=== PATIENT | female | born 1945 | race African-American/Black ===

== ENCOUNTER 2017-08-25 11:09 | Day surgery (SDC) | payer OTHER ==
[2017-08-23 16:07] VITALS: BMI 25.9
[2017-08-25] MEDS ORDERED: PROPOFOL 20 ML ONE (11:19)
[2017-08-25 11:42] VITALS: TEMP 98.1
[2017-08-25 13:22] VITALS: BP 160/73; PULSE 54
--- NOTE | 2017-08-26 17:16 | PATH ---
Surgical Pathology Report Patient Name: NATHANIEL LUNA [facility]. Rec. #: [id number] /Age/Gender: 1945 (Age: 71) / F Account: [id number] Location: [facility]-ENDOSCOPY Taken: 08/25/2017 Received: 08/25/2017 Reported: 08/26/2017 Physicians: Dena Ruiz M.D. Specimen(s) Received A: BX DUODENUM B: BX ANTRUM C: GE JUNCTION Clinical History Abdominal pain Postoperative diagnosis: Small hiatal hernia/gastritis Final Diagnosis A. DUODENUM, BIOPSY: DUODENAL MUCOSA WITH MILD CHRONIC DUODENITIS. B. ANTRUM, BIOPSY: GASTRIC MUCOSA WITH MILD CHRONIC GASTRITIS. IMMUNOSTAIN IS NEGATIVE FOR H. PYLORI ORGANISMS. C. GE JUNCTION, BIOPSY: SQUAMOUS AND COLUMNAR EPITHELIUM WITH CHRONIC INFLAMMATION. NEGATIVE FOR INTESTINAL METAPLASIA. Electronically Signed Carla Gilliland M.D. Gross Description A. Received in formalin, labeled "duodenum" are 2 maciel, irregular portions of soft tissue measuring 0.2-0.3 cm. in greatest dimension. The specimens are submitted in toto in one cassette. B. Received in formalin, labeled "antrum" is a maciel, irregular portion of soft tissue measuring 0.3 cm. in greatest dimension. The specimen is submitted in toto in one cassette. C. Received in formalin, labeled "GE junction" are 2 maciel, irregular portions of soft tissue measuring 0.1-0.2 cm. in greatest dimension. The specimens are submitted in toto in one cassette. BERTA/08/25/2017 kristine/08/25/2017
== END 2017-08-25 13:00 | disposition home or self-care (01) ==
LOC: FASU-ENDO 11:09
PROVIDERS: ATTEND Internal Medicine Gastroenterology
PROC: 0DB68ZX Excision of Stomach, Via Natural or Artificial Opening Endoscopic, Diagnostic (ICD-10-PCS; 2017-08-25)
PROC: 0DB58ZX Excision of Esophagus, Via Natural or Artificial Opening Endoscopic, Diagnostic (ICD-10-PCS; 2017-08-25)
PROC: 0DB98ZX Excision of Duodenum, Via Natural or Artificial Opening Endoscopic, Diagnostic (ICD-10-PCS; principal; 2017-08-25 11:55)
DX: K29.50 Unspecified chronic gastritis without bleeding (principal); K29.80 Duodenitis without bleeding; R13.10 Dysphagia, unspecified; R10.9 Unspecified abdominal pain; K44.9 Diaphragmatic hernia without obstruction or gangrene
CPT/HCPCS: 82962; 88305-TC; 88342-TC

== ENCOUNTER 2017-11-11 09:19 | Day surgery (SDC) | payer OTHER ==
[2017-11-10 14:55] VITALS: BMI 25.9
--- NOTE | 2017-11-11 12:29 | PROC ---
Endoscopy Procedure Endoscopy procedure completed. Please see scanned procedure report.
[2017-11-11 12:34] VITALS: TEMP 98.1
[2017-11-11 13:27] VITALS: BP 159/66; PULSE 68
== END 2017-11-11 13:35 | disposition home or self-care (01) ==
LOC: JASU-ENDO 09:19
PROVIDERS: ATTEND Internal Medicine Gastroenterology
PROC: 0DJD8ZZ Inspection of Lower Intestinal Tract, Via Natural or Artificial Opening Endoscopic (ICD-10-PCS; principal; 2017-11-11 11:00)
DX: R63.4 Abnormal weight loss (principal); K57.30 Diverticulosis of large intestine without perforation or abscess without bleeding; K64.8 Other hemorrhoids